=== PATIENT | male | born 1960 | race Caucasian/White ===

== ENCOUNTER → 2019-01-17 10:22 | Outpatient (CLI) | payer OTHER | END | disposition home or self-care (01) | LOC: D.US 10:22 | PROVIDERS: ATTEND Internal Medicine Interventional Cardiology | DX: R09.89 Other specified symptoms and signs involving the circulatory and respiratory systems (principal) ==

== ENCOUNTER → 2019-01-18 08:03 | Outpatient (CLI) | payer OTHER ==
--- NOTE | 2019-01-22 11:09 | ST ---
PATIENT:MARTY REDDY MEDICAL RECORD: [id number] SEX: M LOCATION:[facility] ORDER #: ADMISSION DATE: 01/18/19 AGE OF PATIENT: 59 REFERRING PHYSICIAN: INTERPRETING PHYSICIAN: GRAY JACINTO MD DATE OF SERVICE: 01/18/2019 PROCEDURE: Nuclear stress test. INDICATION: Angina, hypertension, hyperlipidemia, and diabetes. He was exercised on standard Hemanth protocol for 5 minutes, terminated due to achievement of max target heart rate response with 33 mCi of sestamibi injected at peak stress, 11 mCi used previously for rest images. FINDINGS: Gated SPECT reveals preserved ejection fraction at 64% with good wall motion and thickening and brightening throughout all segments. SPECT imaging Cardiolite was used as myocardial fusion agent. There is homogeneous uptake throughout all segments at rest and stress with no evidence of inducible ischemia or previous infarction. OVERALL IMPRESSION: 1. This is a normal nuclear stress test with no evidence of inducible ischemia or previous infarction. 2. Gated SPECT reveals a preserved ejection fraction at 64%. In this patient with ongoing symptomatology, the current scan does not suggest the presence of hemodynamically significant coronary artery disease. Evaluate noncardiac etiology of chest pain. TRANSINT:[id number] Voice Confirmation ID: [id number] DOCUMENT ID: [id number] GRAY JACINTO MD at 1109 CC: [id number] DICTATION DATE: 01/20/19 1040 AREA MANAGER: 01/20/19 2244 [facility] CLI 01/18/19 [place] [id number] [place] [address]
--- NOTE | 2019-01-24 08:42 | EC ---
PATIENT:MARTY REDDY DATE OF SERVICE: 01/18/19 SEX: M MEDICAL RECORD: [id number] DATE OF : 58 LOCATION:[facility] AGE OF PATIENT: 59 ADMISSION DATE: 01/18/19 REFERRING PHYSICIAN: INTERPRETING PHYSICIAN: JOSH SAWYER MD ECHOCARDIOGRAM REPORT ECHO CHARGES 4 ECHO COMPLETE Date: 01/18/19 CLINICAL DIAGNOSIS: ANGINA/MURMUR H/O HTN ECHOCARDIOGRAPHIC MEASUREMENTS (adult normal given) AC root (d.<3.7cm) 3.5 cm LV Septum d (<1.2 cm> 0.9 cm Valve Excursion 2.1 cm LV Septum (systole) 1.4 cm Left Atria (s.<4.0cm> 3.1 cm LVPW d(<1.2cm) 1.1 cm RV (d.<2.3cm) 2.2 cm LVPW (sytole) 1.7 cm LV diastole(<5.6CM) 5.5 cm MV E-F(>70mm/sec) cm LV systole 3.5 cm LVOT Diameter 1.9 cm MV exc.(>10mm) cm Est.ejection fraction (50-75%) % DOPPLER: LVIT cm/sec A 72.0 cm/sec E 56.0 cm/sec LA cm/sec RVSP 32.3 mmHg LVOT 91.0 cm/sec AOP1/2T m/s Asc. Ao 111 cm/sec RVOT 87.0 cm/sec RA cm/sec PA 89.0 cm/sec AV Gradient Peak 5.0 mmHg AV Mean 2.8 mmHg AV Area 2.3 cm MV Gradient Peak 4.7 mmHg MV Mean 1.4 mmHg MV Area cm COMMENTS: OP - HC Teller Supervisor: 1 [employer] Gradall Operator: 3 Dr. Cr TAPE# PACS Pericardial Effusion N DATE OF SERVICE: 01/18/2019 Adequate 2D, color flow imaging, spectral Doppler, and M-Mode No LVH. LV internal dimension is normal. Wall motion is normal. EF is greater than or equal to 55%. Aortic valve is tricuspid. No evidence of stenosis by Doppler interrogation. Left atrium is normal. Mitral valve shows no prolapse. Trace MR. Right-sided chambers are grossly normal. Trace TR. TRANSINT:[id number] Voice Confirmation ID: [id number] DOCUMENT ID: [id number] ECHOCARDIOGRAM REPORT [id number] MARTY REDDY,JOSH Canela MD at 0842 CC: [id number] DICTATION DATE: 01/22/19 1229 CD[facility] TEAM TRUCK DRIVER: 01/22/19 1253 [facility] CLI 01/18/19 [place] [id number] [place] [id number]
== END | disposition home or self-care (01) ==
LOC: D.HCCARDIO 08:03
PROVIDERS: ATTEND Internal Medicine Interventional Cardiology
DX: R00.1 Bradycardia, unspecified (principal); I20.9 Angina pectoris, unspecified